=== PATIENT | female | born 1975 | race Caucasian/White ===

== ENCOUNTER 2018-07-13 09:18 | Observation (INO) ==
[2018-07-13] MEDS ORDERED: ASPIRIN 325 MG TABLET PO STA (09:35)
[2018-07-13] MEDS ORDERED: NITROGLYCERIN 2% OINT 1 INCH/GM PACK TOP STA (09:35)
[2018-07-13] MEDS ORDERED: NITROGLYCERIN SL 0.4 MG TABLET SL PRN (09:35)
[2018-07-13] MEDS ORDERED: ENOXAPARIN 100 MG/ML SYRINGE SUBCUT STA (09:35)
[2018-07-13 09:52] LABS: Basophils % 0.3 % (0.0-0.8); Eosinophils # 0.1 10*3/uL (0.0-0.87); Hematocrit 41.3 VOL% (35.7-47.0); Hemoglobin 13.2 GM/DL (12.0-16.0); Immature Granulocytes % 0.3 %; Immature Granulocytes Absolute 0.02 #; Lymphocytes # 1.6 10*3/uL (1.4-4.0); Lymphocytes % 22.5 % (21.3-54.2); Mean Corpuscular Hemoglobin 28 PG (27-34); Mean Corpuscular Volume 88.8 FL (87-102); Mean Platelet Volume 11.1 FL (9.6-12.0); Monocytes # 0.5 10*3/uL (0.11-0.8); Monocytes % 7.1 % (1.7-12.7); Neutrophils # 4.7 10*3/uL (1.4-7.4); Neutrophils % 67.8 % (38.7-73.9); Platelet Count 267 T/CUMM (130-400); Red Blood Count 4.65 MC/CUMM (3.8-5.5); Red Cell Distribution Width 14.3 % (9.3-17.3); White Blood Count 6.9 T/CUMM (4-12)
[2018-07-13 10:14] LABS: Calcium 9.1 MG/DL (8.5-10.1); Osmolality,Calculated 278.4 MOS/KG (273-304); Potassium 3.3 MMOL/L (3.5-5.1)
[2018-07-13 10:31] LABS: Barbiturates Screen,Urine Negative (Negative); Benzodiazepines Screen,Urine Negative (Negative); Cannabinoid Screen,Urine Negative (Negative); Opiate Screen,Urine Negative (Negative); Phencyclidine Screen,Urine Negative (Negative)
[2018-07-13 10:32] LABS: Apearance,Urine Slightly Hazy (Clear); Bilirubin,Urine Negative (Negative); Blood, Urine Moderate mg/dL (Negative); Glucose,Urine (UA) Negative (Negative); Ketones,Urine Negative (Negative); Mucus,Urine Few /LPF (Occasional); Nitrite,Urine Negative (Negative); Protein,Urine Negative; RBC,Urine 38 /HPF (0-4); Squamous Epithelial Cell,Urine Occasional /HPF (0-10); Urine Color Yellow (Yellow); Urine Specific Gravity 1.015 (1.001-1.035); Urine Urobilinogen < 2.0 EU/DL (0.2-1.0); WBC,Urine 1 /HPF (0-6)
[2018-07-13] MEDS ORDERED: GLUCAGON 1 MG VIAL IM PRN ×2 (14:22→16:36)
[2018-07-13] MEDS ORDERED: DEXTROSE 50% 25 GM/50 ML SYRINGE IV PRN ×2 (14:22→16:36)
[2018-07-13] MEDS: SODIUM CHLORIDE 0.9% 1,000 ML IV SCH (15:45)
[2018-07-13] MEDS: ACETAMINOPHEN 325 MG TABLET PO PRN ×2 (15:45→21:42)
[2018-07-13] MEDS: POTASSIUM CHLORIDE 20 MEQ TABLET PO PRN ×3 (15:46→20:35)
[2018-07-13] MEDS ORDERED: KETOROLAC 30 MG/1 ML VIAL IV PRN (17:40)
[2018-07-13] MEDS: TICAGRELOR 90 MG TABLET PO SCH (20:35)
[2018-07-13] MEDS: METOPROLOL TARTRATE 50 MG TABLET PO SCH (20:35)
[2018-07-13] MEDS: INSULIN REGULAR 100 UNIT/ML SUBCUT SCH (20:36)
[2018-07-13] MEDS ORDERED: MELATONIN 3 MG TABLET PO PRN (21:12)
[2018-07-14 05:00] LABS: Basophils % 0.4 % (0.0-0.8); Eosinophils # 0.1 10*3/uL (0.0-0.87); Eosinophils % 2.4 % (0.00-10.9); Hematocrit 37.6 VOL% (35.7-47.0); Hemoglobin 11.7 GM/DL (12.0-16.0); Immature Granulocytes % 0.2 %; Immature Granulocytes Absolute 0.01 #; Lymphocytes # 2.4 10*3/uL (1.4-4.0); Lymphocytes % 44.7 % (21.3-54.2); Mean Corpuscular HGB Conc 31.1 GM/DL (32-36); Mean Corpuscular Hemoglobin 28 PG (27-34); Mean Corpuscular Volume 89.5 FL (87-102); Mean Platelet Volume 11.7 FL (9.6-12.0); Monocytes # 0.5 10*3/uL (0.11-0.8); Monocytes % 9.5 % (1.7-12.7); Neutrophils # 2.3 10*3/uL (1.4-7.4); Neutrophils % 42.8 % (38.7-73.9); Platelet Count 235 T/CUMM (130-400); Red Cell Distribution Width 14.6 % (9.3-17.3); White Blood Count 5.4 T/CUMM (4-12)
[2018-07-14 05:22] LABS: Calcium 8.2 MG/DL (8.5-10.1); Osmolality,Calculated 284.1 MOS/KG (273-304); Potassium 3.8 MMOL/L (3.5-5.1); Risk Ratio 2.97
[2018-07-14] MEDS: SODIUM CHLORIDE 0.9% 1,000 ML IV SCH (05:26)
[2018-07-14] MEDS: METOPROLOL TARTRATE 50 MG TABLET PO SCH (08:31)
[2018-07-14] MEDS: TICAGRELOR 90 MG TABLET PO SCH (08:31)
[2018-07-14] MEDS: ACETAMINOPHEN 325 MG TABLET PO PRN (08:32)
[2018-07-14] MEDS: INSULIN REGULAR 100 UNIT/ML SUBCUT SCH ×2 (08:33→11:59)
[2018-07-14] MEDS ORDERED: ATORVASTATIN 40 MG TABLET PO SCH (09:00)
[2018-07-14] MEDS ORDERED: PANTOPRAZOLE 40 MG TABLET PO SCH (09:00)
[2018-07-14] MEDS ORDERED: ISOSORBIDE MONONITRATE 30 MG TABLET PO SCH (09:00)
[2018-07-14] MEDS ORDERED: ASPIRIN EC 81 MG TABLET PO SCH (09:00)
[2018-07-14 12:13] VITALS: BP 115/74
== END 2018-07-14 12:52 | disposition home or self-care (01) ==
LOC: EDBD → EDUNIT# → N.EDINP 09:18 → N.ED 09:18 → N.TELEN 13:27
PROVIDERS: ADMIT Internal Medicine Cardiovascular Disease; ATTEND Internal Medicine Cardiovascular Disease

== ENCOUNTER 2018-11-21 19:30 | Observation (INO) ==
[2018-11-21] MEDS ORDERED: NITROGLYCERIN 2% OINT 1 INCH/GM PACK TOP STA (20:32)
[2018-11-21] MEDS ORDERED: MORPHINE 4 MG/1 ML VIAL IV STA (20:32)
[2018-11-21] MEDS ORDERED: ASPIRIN 325 MG TABLET PO STA (20:32)
[2018-11-21] MEDS ORDERED: ONDANSETRON 4 MG/2 ML VIAL IV STA (20:32)
[2018-11-21 21:03] LABS: Basophils % 0.4 % (0.0-0.8); Eosinophils # 0.6 10*3/uL (0.0-0.87); Eosinophils % 6.9 % (0.00-10.9); Hematocrit 41.2 VOL% (35.7-47.0); Hemoglobin 12.7 GM/DL (12.0-16.0); Immature Granulocytes % 0.5 %; Immature Granulocytes Absolute 0.04 #; Lymphocytes # 2.4 10*3/uL (1.4-4.0); Lymphocytes % 28.5 % (21.3-54.2); Mean Corpuscular HGB Conc 30.8 GM/DL (32-36); Mean Corpuscular Volume 90.2 FL (87-102); Mean Platelet Volume 10.7 FL (9.6-12.0); Monocytes % 5.8 % (1.7-12.7); Neutrophils % 57.9 % (38.7-73.9); Platelet Count 295 T/CUMM (130-400); Red Blood Count 4.57 MC/CUMM (3.8-5.5); Red Cell Distribution Width 15.1 % (9.3-17.3); White Blood Count 8.4 T/CUMM (4-12)
[2018-11-21 21:16] LABS: PT Patient Result 10.5 SECS
[2018-11-21 21:43] LABS: Albumin 3.7 G/DL (3.4-5.0); Bilirubin,Total 0.6 MG/DL (0.2-1.0); Calcium 9.1 MG/DL (8.5-10.1); Osmolality,Calculated 280.3 MOS/KG (273-304); Total Protein 7.7 G/DL (6.4-8.3)
[2018-11-22] MEDS ORDERED: ONDANSETRON 4 MG/2 ML VIAL IV PRN (00:22)
[2018-11-22 00:42] LABS: Risk Ratio 3.76; VLDL CHOLESTEROL 33.4 MG/DL
[2018-11-22 00:57] LABS: Apearance,Urine CLEAR (Clear); Bacteria,Urine Occasional /HPF (Few); Bilirubin,Urine Negative (Negative); Blood, Urine Negative (Negative); Glucose,Urine (UA) Negative (Negative); Ketones,Urine Negative (Negative); Mucus,Urine Many /LPF (Occasional); Nitrite,Urine Negative (Negative); Protein,Urine Negative; Squamous Epithelial Cell,Urine Occasional /HPF (0-10); Urine Color Yellow (Yellow); Urine Specific Gravity 1.025 (1.001-1.035); Urine Urobilinogen < 2.0 EU/DL (0.2-1.0); WBC,Urine 2 /HPF (0-6)
[2018-11-22] MEDS ORDERED: MORPHINE 4 MG/1 ML VIAL IV STA (01:31)
[2018-11-22] MEDS: ENOXAPARIN 40 MG/0.4 ML SYRINGE SUBCUT SCH (01:52)
[2018-11-22] MEDS: NITROGLYCERIN 2% OINT 1 INCH/GM PACK TOP SCH ×3 (05:38→17:04)
[2018-11-22] MEDS: ISOSORBIDE MONONITRATE 30 MG TABLET PO SCH (09:09)
[2018-11-22] MEDS: METOPROLOL TARTRATE 50 MG TABLET PO SCH ×2 (09:09→17:04)
[2018-11-22] MEDS: ASPIRIN EC 81 MG TABLET PO SCH (09:09)
[2018-11-22] MEDS: TICAGRELOR 90 MG TABLET PO SCH ×2 (09:09→20:25)
[2018-11-22] MEDS: ATORVASTATIN 40 MG TABLET PO SCH (09:09)
[2018-11-22] MEDS: PANTOPRAZOLE 40 MG TABLET PO SCH (09:09)
[2018-11-22] MEDS ORDERED: ZALEPLON 5 MG CAPSULE PO PRN (22:44)
[2018-11-23] MEDS: ENOXAPARIN 40 MG/0.4 ML SYRINGE SUBCUT SCH (01:08)
[2018-11-23] MEDS: NITROGLYCERIN 2% OINT 1 INCH/GM PACK TOP SCH ×3 (01:09→13:02)
[2018-11-23] MEDS: TICAGRELOR 90 MG TABLET PO SCH (09:14)
[2018-11-23] MEDS: METOPROLOL TARTRATE 50 MG TABLET PO SCH (09:14)
[2018-11-23] MEDS: ASPIRIN EC 81 MG TABLET PO SCH (09:14)
[2018-11-23] MEDS: PANTOPRAZOLE 40 MG TABLET PO SCH (09:14)
[2018-11-23] MEDS: ISOSORBIDE MONONITRATE 30 MG TABLET PO SCH (09:14)
[2018-11-23] MEDS: ATORVASTATIN 40 MG TABLET PO SCH (09:14)
[2018-11-23 12:08] VITALS: BP 114/67
== END 2018-11-23 14:55 | disposition home or self-care (01) ==
LOC: N.ED 19:30 → N.EDINP 19:30 → N.TELEN 11-22 00:40
PROVIDERS: ADMIT Internal Medicine; ATTEND Internal Medicine

== ENCOUNTER 2019-02-18 10:24 | Observation (INO) ==
[2019-02-18] MEDS ORDERED: NITROGLYCERIN 2% OINT 1 INCH/GM PACK TOP STA (11:11)
[2019-02-18] MEDS ORDERED: ASPIRIN 325 MG TABLET PO STA (11:11)
[2019-02-18] MEDS ORDERED: ONDANSETRON 4 MG/2 ML VIAL IV STA (11:11)
[2019-02-18] MEDS ORDERED: MORPHINE 4 MG/1 ML VIAL IV STA (11:11)
[2019-02-18] MEDS ORDERED: ALUM/MAG/SIMETH/LIDO VISC 1:1 30 ML BOTTLE PO STA (11:11)
[2019-02-18 11:46] LABS: Basophils % 0.3 % (0.0-0.8); Eosinophils # 0.2 10*3/uL (0.0-0.87); Eosinophils % 2.9 % (0.00-10.9); Hematocrit 39.1 VOL% (35.7-47.0); Hemoglobin 12.6 GM/DL (12.0-16.0); Immature Granulocytes % 0.1 %; Immature Granulocytes Absolute 0.01 #; Lymphocytes # 2.1 10*3/uL (1.4-4.0); Lymphocytes % 26.3 % (21.3-54.2); Mean Corpuscular HGB Conc 32.2 GM/DL (32-36); Mean Corpuscular Volume 88.1 FL (87-102); Mean Platelet Volume 11.2 FL (9.6-12.0); Neutrophils % 62.4 % (38.7-73.9); Platelet Count 290 T/CUMM (130-400); Red Blood Count 4.44 MC/CUMM (3.8-5.5); Red Cell Distribution Width 14.4 % (9.3-17.3)
[2019-02-18 12:07] LABS: Albumin 3.6 G/DL (3.4-5.0); Bilirubin,Total 0.4 MG/DL (0.2-1.0); Calcium 8.7 MG/DL (8.5-10.1); Osmolality,Calculated 277.4 MOS/KG (273-304); Total Protein 7.7 G/DL (6.4-8.3)
[2019-02-18] MEDS ORDERED: ONDANSETRON 4 MG/2 ML VIAL IV PRN (13:10)
[2019-02-18] MEDS ORDERED: ACETAMINOPHEN 325 MG TABLET PO PRN (13:10)
[2019-02-18] MEDS ORDERED: NITROGLYCERIN SL 0.4 MG TABLET SL PRN (13:13)
[2019-02-18] MEDS ORDERED: DEXTROSE 50% 25 GM/50 ML VIAL IV PRN (13:33)
[2019-02-18] MEDS ORDERED: GLUCAGON 1 MG VIAL IM PRN (13:33)
[2019-02-18] MEDS ORDERED: INFLUENZA VIRUS VACCINE 0.5 ML SYRINGE IM ONE (17:24)
[2019-02-18] MEDS: TICAGRELOR 90 MG TABLET PO SCH (21:25)
[2019-02-18] MEDS: METOPROLOL TARTRATE 50 MG TABLET PO SCH (21:25)
[2019-02-19 04:53] LABS: Basophils % 0.5 % (0.0-0.8); Eosinophils # 0.3 10*3/uL (0.0-0.87); Eosinophils % 4.1 % (0.00-10.9); Hematocrit 37.6 VOL% (35.7-47.0); Immature Granulocytes % 0.2 %; Immature Granulocytes Absolute 0.01 #; Lymphocytes # 2.6 10*3/uL (1.4-4.0); Lymphocytes % 39.4 % (21.3-54.2); Mean Corpuscular HGB Conc 31.9 GM/DL (32-36); Mean Corpuscular Volume 89.7 FL (87-102); Mean Platelet Volume 11.4 FL (9.6-12.0); Monocytes % 10.3 % (1.7-12.7); Neutrophils % 45.5 % (38.7-73.9); Platelet Count 225 T/CUMM (130-400); Red Blood Count 4.19 MC/CUMM (3.8-5.5); Red Cell Distribution Width 14.4 % (9.3-17.3); White Blood Count 6.6 T/CUMM (4-12)
[2019-02-19 05:17] LABS: Calcium 8.4 MG/DL (8.5-10.1); Osmolality,Calculated 283.3 MOS/KG (273-304)
[2019-02-19] MEDS ORDERED: POTASSIUM CHLORIDE 20 MEQ TABLET PO PRN (07:28)
[2019-02-19] MEDS ORDERED: SODIUM CHLORIDE 0.9% 1,000 ML IV SCH (07:30)
[2019-02-19 08:51] VITALS: BP 133/68
[2019-02-19] MEDS ORDERED: PARoxetine 20 MG TABLET PO SCH (09:00)
[2019-02-19] MEDS ORDERED: PANTOPRAZOLE 40 MG TABLET PO SCH (09:00)
[2019-02-19] MEDS ORDERED: ASPIRIN EC 81 MG TABLET PO SCH (09:00)
[2019-02-19] MEDS ORDERED: ATORVASTATIN 40 MG TABLET PO SCH (09:00)
[2019-02-19] MEDS ORDERED: ISOSORBIDE MONONITRATE 30 MG TABLET PO SCH (09:00)
[2019-02-19] MEDS: METOPROLOL TARTRATE 50 MG TABLET PO SCH (10:45)
[2019-02-19] MEDS: TICAGRELOR 90 MG TABLET PO SCH (11:04)
[2019-02-19] MEDS ORDERED: GABAPENTIN 100 MG CAPSULE PO SCH (21:00)
[2019-02-19] MEDS ORDERED: ACETAMINOPHEN 325 MG TABLET PO SCH (21:00)
[2019-02-19] MEDS ORDERED: METOPROLOL TARTRATE 25 MG TABLET PO SCH (21:00)
== END 2019-02-19 14:05 | disposition home or self-care (01) ==
LOC: EDUNIT# → EDBD → N.EDINP 10:24 → N.ED 10:24 → N.TELEN 13:32
PROVIDERS: ADMIT Hospitalist; ATTEND Hospitalist

== ENCOUNTER 2020-12-27 19:18 | Observation (INO) ==
[2020-12-27] MEDS ORDERED: ONDANSETRON ODT 4 MG TABLET PO STA (20:27)
[2020-12-27] MEDS ORDERED: GLUCAGON 1 MG VIAL IM PRN (20:51)
[2020-12-27] MEDS ORDERED: ONDANSETRON 4 MG/2 ML VIAL IV PRN (20:51)
[2020-12-27] MEDS ORDERED: DEXTROSE 50% 25 GM/50 ML VIAL IV PRN (20:51)
[2020-12-27] MEDS ORDERED: CLORAZEPATE 3.75 MG TABLET PO PRN (20:58)
[2020-12-27] MEDS: GABAPENTIN 400 MG CAPSULE PO SCH (22:43)
[2020-12-27] MEDS: TICAGRELOR 90 MG TABLET PO SCH (22:43)
[2020-12-27] MEDS: METOPROLOL TARTRATE 50 MG TABLET PO SCH (22:44)
[2020-12-27] MEDS: INSULIN REGULAR 100 UNIT/ML SUBCUT SCH (22:44)
[2020-12-28 01:34] LABS: Albumin 2.6 G/DL (3.4-5.0); Bilirubin,Total 0.5 MG/DL (0.20-1.00); Calcium 8.6 MG/DL (8.5-10.1); Osmolality,Calculated 280.4 MOS/KG (273-304); Potassium 3.7 MMOL/L (3.5-5.1); Risk Ratio 3.06; Total Protein 6.6 G/DL (6.4-8.2); VLDL Cholesterol 20.8 MG/DL
[2020-12-28] MEDS: METOPROLOL TARTRATE 50 MG TABLET PO SCH (08:28)
[2020-12-28] MEDS: GABAPENTIN 400 MG CAPSULE PO SCH ×2 (08:28→14:16)
[2020-12-28] MEDS: TICAGRELOR 90 MG TABLET PO SCH (08:28)
[2020-12-28] MEDS ORDERED: DAPAGLIFLOZIN 10 MG TABLET PO SCH (09:00)
[2020-12-28] MEDS ORDERED: ENOXAPARIN 40 MG/0.4 ML SYRINGE SUBCUT SCH (09:00)
[2020-12-28] MEDS ORDERED: MULTIVITAMIN (CENTRUM) TABLET PO SCH (09:00)
[2020-12-28] MEDS: INSULIN REGULAR 100 UNIT/ML SUBCUT SCH ×2 (09:00→11:00)
[2020-12-28] MEDS ORDERED: FERROUS SULFATE 325 MG TABLET PO SCH (09:00)
[2020-12-28] MEDS ORDERED: ISOSORBIDE MONONITRATE 30 MG TABLET PO SCH (09:00)
[2020-12-28] MEDS ORDERED: ASPIRIN EC 81 MG TABLET PO SCH (09:00)
[2020-12-28] MEDS ORDERED: PANTOPRAZOLE 40 MG TABLET PO SCH (09:00)
[2020-12-28 14:38] VITALS: BP 94/55
[2020-12-28] MEDS ORDERED: ATORVASTATIN 20 MG TABLET PO SCH (21:00)
[2020-12-28] MEDS ORDERED: ATORVASTATIN 40 MG TABLET PO SCH (21:00)
[2020-12-29] MEDS ORDERED: DAPAGLIFLOZIN 10 MG TABLET PO SCH (09:00)
== END 2020-12-28 15:39 | disposition left against medical advice (07) ==
LOC: N.EDINP 19:18 → N.ED 19:18 → N.TELEN 21:45
PROVIDERS: ADMIT Internal Medicine; ATTEND Internal Medicine